=== PATIENT | female | born 1950 | race Caucasian/White ===

== ENCOUNTER → 2016-09-20 | Outpatient (CLI) | payer OTHER ==
[~2016-09-20] MED LIST: FISH OIL 1,2001 EAC3 PO; IBUPROFEN800 MG PO; LORTAB 10-3251 EACH PO; MULTIPLE VITAM1 EAC1 PO; OSTEO BI-FLEX1 EAC4 PO; TASPRIN325 MG PO; TRAMADOL HCL50 M2 PO; VITAMIN C1000 M2 PO
--- NOTE | ~2016-09-20 | CO ---
Unit #: [id number] #: [id number] Patient: ED JAIMES [id number] [address] [place], [place] [address] [id number] O MR#: [id number] NAME: ED JAIMES ROOM: Age: Sex: F Admission Date: 09/20/2016 : 1950 Attending Physician: Rafael Adams M.D. Consultation Date: 09/20/2016 CONSULTATION REPORT REASON FOR CONSULTATION Preoperative medical evaluation prior to removal of left hip screw and left total hip arthroplasty. HISTORY OF PRESENT ILLNESS The patient is a 66-year-old female who presented to preprocedural screening for the reason as indicated above. She complains of left hip pain at the time of this interview but has no other complaints. She denies shortness of air, orthopnea, or paroxysmal nocturnal dyspnea. She does not snore at night. She denies chest, arm, neck, jaw, or back pain and pressure, and denies lightheadedness, dizziness, presyncope, syncope, and palpitations. She denies history of myocardial infarction, congestive heart failure, CVA, TIA, diabetes, or chronic kidney disease. PAST MEDICAL HISTORY 1. Osteoarthritis. 2. Avascular necrosis of left hip. 3. Obesity with BMI of 31. 4. Urinary stress incontinence. 5. Degenerative disk disease. 6. Osteoporosis. PAST SURGICAL HISTORY 1. Open reduction and internal fixation left femur fracture in 2004. 2. Left ankle fracture repair. 3. Cholecystectomy. 4. section. Patient denies a personal and family history of complications to anesthesia. ALLERGIES Penicillins cause hives and codeine causes severe nausea, vomiting, and abdominal pain. Denies latex allergy. CURRENT MEDICATIONS 1. Osteo Bi-Flex cap 1 p.o. b.i.d. 2. Vitamin C 1000 mg p.o. b.i.d. 3. Fish oil 1200 mg softgel 1 p.o. b.i.d. 4. Multivitamin 1 p.o. daily. 5. Tramadol 50 mg p.o. every 8 hours p.r.n. pain. 6. Ibuprofen 800 mg p.o. t.i.d. p.r.n. pain. Unit #: [id number] #: [id number] Patient: ED JAIMES SOCIAL HISTORY Patient is a former smoker but stopped approximately eight years ago. Denies ETOH and illicit drug use. FAMILY HISTORY Coronary artery disease and hypertension. REVIEW OF SYSTEMS A 10-point review of systems was conducted and negative except as indicated under History of Present Illness above. PHYSICAL EXAMINATION GENERAL: A 66-year-old female awake, alert, and in no acute distress. VITAL SIGNS: Temperature 97, heart rate 81, respiratory rate 16, blood pressure 130/76, and oxygen saturation 98% on room air. HEENT: Atraumatic and normocephalic. Sclerae are anicteric. No discharge from eyes, ears, or nares. LYMPHATICS: No preauricular, postauricular, tonsillar, or submental anterior or posterior cervical adenopathy. ENDOCRINE: No thyromegaly, thyroid nodules, or tenderness. RESPIRATORY: Clear to auscultation all webster bilaterally without wheezes, rhonchi, or rales. CARDIOVASCULAR: S1 and S2, regular rate and rhythm, without murmur or rub. GASTROINTESTINAL: Bowel sounds positive x4. Soft, nontender, and nondistended. EXTREMITIES: No edema, cyanosis, or clubbing. MUSCULOSKELETAL: Strength 5 over 5 all extremities bilaterally to flexion and extension. NEUROLOGIC: Alert and oriented x3. Speech clear. Cranial nerves II-XII grossly intact. Follows commands. DIAGNOSTIC STUDIES LABORATORY: WBC 8.8, hemoglobin 13.8, hematocrit 42.6, and platelets 289,000. Sodium 141, potassium 4.3, chloride 107, CO2 of 25, glucose 93, BUN 15, creatinine 0.7, calcium 9.8, AST 20, ALT 18, alkaline phosphatase 121, bilirubin total 0.7, total protein 6.8, and albumin 4.2. Urinalysis negative with neither microscopic nor culture indicated. PT 9.4 and INR 0.9. Blood type A positive, antibody screen negative. MRSA nasal screen report pending at this time. IMAGING: Two-view chest x-ray report pending. CARDIOLOGY: A 12-lead EKG normal sinus rhythm, normal ECG, confirmed report pending at this time. IMPRESSION The patient is a 66-year-old female who presents to preprocedural screening for: 1. Preoperative medical evaluation prior to removal of left hip screw and left total hip arthroplasty. Patient's Basilio Revised Cardiac Risk Index is equal to 0.4%. This is consistent with patient's perioperative risk of cardiac , fatal or nonfatal myocardial infarction, cardiopulmonary arrest, arrhythmia, or pulmonary edema. This has been discussed in detail with the patient. She wishes to proceed with surgery as scheduled at this time. 2. Obesity with body mass index of 31. 3. History of urinary stress incontinence. Unit #: [id number] #: [id number] Patient: ED JAIMES 4. Osteoarthritis. 5. Degenerative disk disease. 6. Osteoporosis. 7. History of avascular necrosis of the left hip. Thank you for allowing us to participate in the care of this patient. We will gladly follow her for postop medical management pending order of Dr. Adams. Dictated by... Loida Miller A.P.R.N. for Mery Gamez/ruchi TD: 09/20/2016 20:57 JOB #: [id number] CONSULTATION REPORT Page 1 of 1 X Loida Miller APRN CONSULTATION REPORT
--- NOTE | ~2016-09-20 | EKG ---
PATIENT: ED JAIMES UNIT #: [id number] Ventricular Rate: 79 BPM Atrial Rate: 79 BPM P-R Interval: 148 ms QRS Duration: 76 ms Q-T Interval: 416 ms QTC Calculation(Bezet): 477 ms P Mesa: 47 degrees Calculated R Mesa: -20 degrees Calculated T Mesa: 50 degrees Diagnosis Line: Normal sinus rhythm Diagnosis Line: Normal ECG Diagnosis Line: No previous ECGs available Diagnosis Line: Confirmed by EKATERINA SKINNER MD ([id number]) on 09/22/2016 Diagnosis Line: 9:38:18 AM INTERPRETING MD: BRODY CARMEN
--- NOTE | ~2016-09-20 | CR63 ---
[facility] A Service of [facility] RADIOLOGY TEXT RESULTS PATIENT: ED JAIMES LOCATION: [facility] : [birth year] UNIT #: [id number] AGE: [address]: Rafael Adams MD SEX: F ORDER DR: [id number] [facility] [address] [place], [place] [address] [id number] O MR#: [id number] Acc #: [id number] NAME: ED JAIMES : 1950 SEX: F STUDY DATE/TIME: 09/20/2016 12:45 UNIT: [facility] ROOM: STUDY DESCRIPTION: CR Chest 2 View Attending Physician: Rafael Adams M.D. Referring Physician: Rafael dAams M.D. Ordering Physician: Rafael Adams M.D. Primary Care Physician: Generic Doctor Not In System MEDICAL IMAGING REPORT This report is preliminary unless electronic signature is present EXAM Two-view chest HISTORY Preop for left hip replacement, shortness of air with activity. FINDINGS 2 views of the chest demonstrates moderate lung volumes satisfactory technique. No infiltrates or effusions. Heart, mediastinum great vessels unremarkable. There is accentuation of the thoracic kyphosis with diffuse osteopenia. There is wedging of several mid thoracic vertebral bodies as well as compression deformity of T10 estimated about 30% loss of the central vertebral body height and anterior to the body height. Mediastinal calcifications suggest old granulomas disease. IMPRESSION 1. No acute cardiopulmonary abnormality. 2. Osteopenia with compression deformities of several mid thoracic vertebral bodies most pronounced at T10 with at least 30% compression fracture T10 age undetermined; but given the absence of clinical symptoms, probably chronic. Dictated by... Danielle Botello M.D. THIS IS AN ELECTRONICALLY VERIFIED REPORT Danielle Botello M.D. at 09/21/2016 8:24 AM Eduardo TD: 09/20/2016 22:07 JOB #: [id number] [facility] A Service of [facility] RADIOLOGY TEXT RESULTS PATIENT: ED JAIMES LOCATION: [facility] : 52 UNIT #: [id number] AGE: [address]: Rafael Adams MD SEX: F ORDER DR: MEDICAL IMAGING REPORT Page 1 of 1 COPY
[2016-09-20 11:51] LABS: HEMATOCRIT 42.6 % (35.0-45.0); HEMOGLOBIN 13.8 gm/dL (12.0-16.0); MEAN CELL VOLUME 92.3 FL (83-96); MEAN CORPUSCULAR HEMOGLOBIN 29.9 PG (28-34); MEAN CORPUSCULAR HGB CONC 32.4 g/dL (30-36); MEAN PLATELET VOLUME 8.6 FL (6.5-11.5); RED BLOOD COUNT 4.62 X10e (3.90-5.30); RED CELL DISTRIBUTION WIDTH 12.5 % (11.0-15.5); WHITE BLOOD COUNT 8.8 X10e3 (4.0-10.5)
[2016-09-20 11:55] LABS: URINE APPEARANCE CLEAR; URINE BILIRUBIN NEG (NEG); URINE BLOOD NEG (NEG); URINE COLOR YELLOW; URINE GLUCOSE NEG (NEG); URINE KETONE NEG (NEG); URINE LEUKOCYTE ESTERASE NEG (NEG); URINE NITRATE NEG (NEG); URINE PROTEIN NEG (NEG); URINE SPECIFIC GRAVITY 1.007 (1.003-1.035); URINE UROBILINOGEN 0.2 MG/DL (NEG)
[2016-09-20 12:00] LABS: CULTURE INDICATED? NO; URINE SOURCE CLEAN CATCH
[2016-09-20 12:04] LABS: INR 0.9; PROTHROMBIN TIME (PATIENT) 9.4 SECONDS (9.6-11.5)
[2016-09-20 12:20] LABS: ALBUMIN SERUM 4.2 g/dL (3.5-5.0); BILIRUBIN,TOTAL 0.7 mg/dL (0.2-2.0); BUN/CREATININE RATIO 21.42; CALCIUM SERUM 9.8 mg/dL (8.4-10.2); CREATININE SERUM 0.7 mg/dL (0.6-1.4); GLOM FILT RATE Estimated 90.9 mL/min (>60); POTASSIUM 4.3 mmol/L (3.5-5.1); PROTEIN TOTAL SERUM 6.8 g/dL (6.0-8.3)
== END | disposition home or self-care (01) ==
LOC: CAMB 11:01
PROVIDERS: Orthopaedic Surgery
DX: Z01.818 Encounter for other preprocedural examination (principal); M16.12 Unilateral primary osteoarthritis, left hip; M85.88 Other specified disorders of bone density and structure, other site
CPT/HCPCS: 36415; 71020; 80053; 81003; 85027; 85610; 86850; 86900; 86901; 87070; 93005

== ENCOUNTER 2016-09-27 07:05 | Inpatient (IN) | payer MEDICARE, OTHER ==
--- NOTE | ~2016-09-27 | OR ---
Unit #: [id number] #: [id number] Patient: ED JAIMES [id number] [address] [place], [place] [address] [id number] MR#: [id number] NAME: ED JAIMES ROOM: 452 Date of Procedure: 09/27/2016 Admission Date: 09/27/2016 Surgeon: Rafael Adams M.D. : 1950 Attending Physician: Rafael Adams M.D. Referring Physician: Rafael Adams M.D. OPERATIVE REPORT PREOPERATIVE DIAGNOSIS Osteoarthritis of the left hip, status post open reduction and internal fixation of hip fracture with screw and side plate. POSTOPERATIVE DIAGNOSIS Osteoarthritis of the left hip, status post open reduction and internal fixation of hip fracture with screw and side plate. PROCEDURES PERFORMED Removal of screw and side plate and conversion to a left total hip. ANESTHESIA General. ESTIMATED BLOOD LOSS About 300 mL to 400 mL. INDICATIONS FOR PROCEDURE This is a 66-year-old who said in the past she has had a compression hip screw positioned for a left hip fracture. While the fracture was healed, she has gone on to develop osteoarthritis. The pain limits her walking or standing, interrupts her sleep. She has tried injections and anti-inflammatories with no relief of her discomfort. She is brought to the hospital today for conversion to a left total hip. DESCRIPTION OF PROCEDURE The patient was brought to holding room, given 1500 mg of vancomycin. This will be continued postop, but discontinued within 23 hours the start time of surgery. She was then given a general anesthetic, placed in decubitus position with the left side up. Left hip was prepped and draped in a sterile fashion. The lateral incision was opened. The dissection carried out down through the femur. The plate was identified. The screws were removed. We then removed the screw from the plate and lag screw. The plate was removed. We then carried out a posterior approach to the hip. The capsule was T'd open, and the hip was dislocated. We then made the neck cut at the appropriate level with an osteotome. The head was split. The head fragment removed. Then, the lag screw was removed The femur was retracted anteriorly. The labrum was debrided and the acetabulum was progressively reamed with basket reamers up to a size 51. 52 mm [place] cup with Gription was inserted in 40 degrees of abduction and 20 degrees of forward flexion. After this was done, a trial neutral 36 liner was positioned in the cup. Starter reamer Unit #: [id number] #: [id number] Patient: ED JAIMES was passed down. The lateralizing reamer was used, and then the broaches were used up to a size 4. After this was done, a trial reduction was carried out. The hip was stable. Leg lengths appeared to be appropriate with a +5, 36 head. We then removed all the trials. The real liner was impacted into the cup. The femoral canal was brushed, plugged, irrigated, and dried, and then 2 packages of cement were mixed. A size 4 Taney basic stem was cemented into 20 to 25 degrees of anteversion. After this was completed, any excess cement was removed. The real +5, 36 head was opened and applied. The hip stability was excellent. The wound was irrigated with Betadine and then bacitracin. The capsule was repaired with 0 Ethibond. The fascia was closed with #1 running STRATAFIX suture. The subcutaneous was closed with 0 and 2-0 Vicryl and eloy in the skin. A sterile dressing was applied. Abduction pillow positioned, and the general anesthetic reversed. medical clerical assistant, Chata Lee was present throughout the entire case. Dictated by... Mery Mack/ju TD: 09/28/2016 01:20 JOB #: [id number] OPERATIVE REPORT Page 1 of 1 X Rafael Adams MD PROCEDURE OPERATIVE NOTE
--- NOTE | ~2016-09-27 | CR144 ---
[facility] A Service of [facility] RADIOLOGY TEXT RESULTS PATIENT: ED JAIMES LOCATION: [place] [address]- : [birth year] UNIT #: [id number] AGE: [address]: Rafael Adams MD SEX: F ORDER DR: [id number] [facility] [address] [place], [place] [address] [id number] I MR#: [id number] Acc #: [id number] NAME: ED JAIMES : 1950 SEX: F STUDY DATE/TIME: 09/27/2016 12:43 UNIT: [facility] ROOM: [facility] STUDY DESCRIPTION: CR Hip 1 View Lt Attending Physician: Rafael Adams M.D. Referring Physician: Rafael Adams M.D. Ordering Physician: Rafael Adams M.D. Primary Care Physician: Primary Care Physician No MEDICAL IMAGING REPORT This report is preliminary unless electronic signature is present EXAM Portable left hip, 09/27/2016 COMPARISON STUDIES None HISTORY Status post left total hip arthroplasty. Left hip pain. FINDINGS An AP view is obtained. The examination shows postop changes of left total hip arthroplasty. The position and alignment of the prosthesis appears satisfactory. There is some deformity of the left proximal femur, presumably related to prior operative intervention. CONCLUSION Expected postop appearance following left total hip revision. Dictated by... Aidne Butler M.D. THIS IS AN ELECTRONICALLY VERIFIED REPORT Aiden Butler M.D. at 09/28/2016 7:10 AM Xiomy TD: 09/27/2016 14:17 JOB #: [id number] MEDICAL IMAGING REPORT Page 1 of 1 COPY
--- NOTE | ~2016-09-27 | DS ---
Unit #: [id number] #: [id number] Patient: ED LAKE [id number] [address] [place], [place] [address] [id number] I MR#: [id number] NAME: ED LAKE ROOM: 45 Age: 66 Sex: F Admission Date: 09/27/2016 : 1950 Discharge Date: 09/28/2016 Attending Physician: Rafael Adams M.D. Referring Physician: Rafael Adams M.D. Primary Care Physician: Lauren Primary Care Physician DISCHARGE SUMMARY ADMITTING DIAGNOSIS Left hip avascular necrosis. DISCHARGE DIAGNOSIS Left hip avascular necrosis. HOSPITAL COURSE On 09/27/2016 Ms. Lake underwent a left hip compression screw removal with left total hip placement. She tolerated the procedure well. She was transported to the fourth floor, where she underwent physical therapy, medical management and anticoagulation therapy. She is doing well and is ready to be discharged. DISCHARGE CONDITION Stable. DISPOSITION Discharge home with [facility]. DISCHARGE MEDICATIONS 1. Routine home medications. 2. [place] 10/325 mg. 3. Aspirin 325 mg p.o. b.i.d. times four weeks. FOLLOWUP/DISCHARGE INSTRUCTIONS 1. Ms. Lake is going to be discharged home with home health. 2. The patient is on aspirin for DVT prophylaxis. 3. No labs are warranted at this time. 4. The patient will need physical therapy for dislocation precautions. 5. The patient is weightbearing as tolerated. 6. Follow-up appointment with Dr. Adams is in six weeks. Please call our office for that appointment date and time. Dictated by... Cole Bishop for Mery Mack/jacklyn TD: 09/28/2016 11:55 JOB #: [id number] Unit #: [id number] #: [id number] Patient: ED LAKE DISCHARGE SUMMARY Page 1 of 1 X Chata Lee DISCHARGE SUMMARY
[~2016-09-27 07:05] MED LIST changes: -LORTAB 10-3251 EACH PO; -TASPRIN325 MG PO
[2016-09-27 09:02] LABS: INR 0.9; PROTHROMBIN TIME (PATIENT) 9.9 SECONDS (9.6-11.5)
[2016-09-28 03:59] LABS: BASOPHIL% 0.5 % (0-2.5); EOSINOPHIL# 0.1 X10e3 (0-0.7); EOSINOPHIL% 1.2 % (0.0-7.0); HEMATOCRIT 30.6 % (35.0-45.0); HEMOGLOBIN 10.1 gm/dL (12.0-16.0); LYMPHOCYTE# 1.5 X10e3 (1.0-3.5); LYMPHOCYTE% 18.9 % (17.0-45.0); MEAN CELL VOLUME 92.4 FL (83-96); MEAN CORPUSCULAR HEMOGLOBIN 30.4 PG (28-34); MEAN CORPUSCULAR HGB CONC 32.9 g/dL (30-36); MONOCYTE# 0.7 X10e3 (0-1.0); MONOCYTE% 8.4 % (3.0-12.0); NEUTROPHIL# 5.7 X10e3 (1.5-7.1); PLATELET COUNT 122 X10e3 (140-420); RED BLOOD COUNT 3.31 X10e (3.90-5.30); RED CELL DISTRIBUTION WIDTH 12.3 % (11.0-15.5); WHITE BLOOD COUNT 8.1 X10e3 (4.0-10.5)
[2016-09-28 04:01] LABS: DIFF IND NO
[2016-09-28 04:24] LABS: BUN/CREATININE RATIO 17.14; CALCIUM SERUM 8.3 mg/dL (8.4-10.2); CREATININE SERUM 0.7 mg/dL (0.6-1.4); GLOM FILT RATE Estimated 90.9 mL/min (>60); MAGNESIUM 1.8 mg/dL (1.6-3.0); POTASSIUM 4.4 mmol/L (3.5-5.1)
[2016-09-28] MEDS ORDERED: TASPRIN325 MG PO (10:18)
[2016-09-28] MEDS ORDERED: LORTAB 10-3251 EACH PO (10:19)
== END 2016-09-28 12:01 | disposition home health service (06) | DRG 470 ==
LOC: CSUR 07:05 → CPACUOF 09:15 → CSUR 10:00 → C4B 11:52 → CPACUOF 11:52 → C4B 13:02 → CPACUOF 13:02 → C4B 09-28 12:01
PROVIDERS: Orthopaedic Surgery; Physician Assistant Medical
PROC: 0SRB0J9 Replacement of Left Hip Joint with Synthetic Substitute, Cemented, Open Approach (ICD-10-PCS; principal; 2016-09-27 09:00)
PROC: 0QP904Z Removal of Internal Fixation Device from Left Femoral Shaft, Open Approach (ICD-10-PCS; 2016-09-27 09:00)
DX: M16.12 Unilateral primary osteoarthritis, left hip (principal); M87.9 Osteonecrosis, unspecified; Z90.49 Acquired absence of other specified parts of digestive tract
CPT/HCPCS: 73501; 80048; 83735; 85025; 85610; 88304; 88311; 97110; 97116; 97162; 97165; 97530; 97535; C1776; G8978-GP; G8979-GP; G8980-GP; G8987-GO; G8988-GO; G8989-GO; J0171; J0330; J0735; J1100; J1170; J1885; J2250; J2405; J2795; J3010; J3370